=== PATIENT | female | born 1965 ===

== ENCOUNTER 2018-02-17 09:18 | Emergency (ER) | payer SELFPAY ==
[~2018-02-17] VITALS: Ht 162.6 cm; Wt 58.0 kg
[2018-02-17 09:25] VITALS: BP 196/110; PULSE 82; RESP 16; TEMP 99.5; O2SAT 98
== END 2018-02-17 13:00 | disposition left against medical advice (07) ==
LOC: NED 09:18
DX: M79.602 Pain in left arm (principal)
CPT/HCPCS: 99281